=== PATIENT | male | born 1975 | race Caucasian/White ===

== ENCOUNTER 2017-08-30 19:33 | Emergency (ER) | payer MEDICARE, MEDICAID ==
[~2017-08-30] VITALS: Ht 198.1 cm; Wt 102.1 kg
[~2017-08-30 19:33] MED LIST: ABILIFY 5 MG TAB5 M1 PO; ABILIFY20 MG; ABILIFY20 MG PO; ALPRAZOLAM; AMBIENCR; AMBIENCR PO; ASACOL; ASACOL 400 MG400 M1 PO; ASACOL PO; BENTYL 20 MG TA20 M1 PO; BENTYL20 MG PO; CELEXA 20 MG TA20 M1; CELEXA40 MG PO; CIPROFLOXACIN500 M1 PO; COMPAZINE10 M1 PO; COMPAZINE10 MG PO; DILANTIN100 MG PO; DILAUDID; DILAUDID 4 MG TA4 M1; DILAUDID 4 MG TA4 M1 PO; DILAUDID2 M1 PO; DILAUDID8 MG PO; FENTANYL PA50 MCG/HR TP; FLAGYL500 MG PO; HYDROCODONE-AP1 EAC6 PO; IBUPROFEN 600600 M1 PO; LAMICTAL100 MG PO; LORTAB 7.5/5001 TA3 PO; MEDROLDOSEPACK PO; NEURONTIN600 MG PO; NEURONTIN800 MG PO; NORCO 5-325 TA1 EACH PO; NORCO 7.5-3251 EACH PO; OMEPRAZOLE40 MG PO; PEPCID AC20 M1 PO; PERCOCET 5-3251 EACH PO; PHENERGAN 25 MG25 M1 PO; PHENERGAN 25 MG25 MG PO; PHENERGAN25 M2 RC; PHENERGAN25 MG RE; PHENERGAN50 MG RC; PREDNISONE 10 M10 M1 PO; PREDNISONE 20 M20 M1; PREDNISONE 20 M20 M1 PO; PREDNISONE PO; PREDNISONE50 MG PO; PROTONIX40 MG PO; REGLAN 10 MG TA10 MG PO; SEROQUEL; SEROQUEL XR 30300 MG; SEROQUEL XR 30300 MG PO; SIMVASTATIN20 MG; ULTRAM 50MG TAB50 MG PO; VICODIN 5-5001 EACH PO; WELCHOL 625 MG625 MG PO; XANAX XR2 MG; XANAX XR2 MG PO; XANAX1 MG PO; ZOFRAN 4 MG ORAL4 M1 DIS; ZOFRAN 4 MG ORAL4 MG PO; ZOFRAN ODT4 MG PO; ZOFRAN4 MG PO; ZOFRAN8 MG PO; ZOLPIDEM TART12.5 M1 PO
[2017-08-30] MEDS ORDERED: NORCO 10-325 T1 EACH (19:41)
[2017-08-30 19:59] LABS: ABSOLUTE EOSINOPHILS 0.1 thou/uL (0.0-0.7); ABSOLUTE LYMPHOCYTES 1.8 thou/uL (0.8-5.3); ABSOLUTE MONOCYTES 0.7 thou/uL (0.0-1.2); ABSOLUTE NEUTROPHILS 7.9 thou/uL (1.6-8.1); BASOPHILS 0.2 %; EOSINOPHILS 0.5 %; HEMATOCRIT 38.6 % (42.0-52.0); HEMOGLOBIN 13.2 gm/dL (14.0-18.0); LYMPHOCYTES 17.1 %; MCH 31.5 pg (26.0-34.0); MCHC 34.2 g/dL (28.0-37.0); MCV 92.2 fL (80.0-100.0); MONOCYTES 7.1 %; NUCLEATED RBCS 0 /100WBC; PLATELET COUNT* 257 thou/uL (150-400); POLYS 75.1 %; RBC 4.19 mil/uL (4.50-6.00); RDW-CV 14.7 % (10.5-14.5); WBC 10.5 thou/uL (4.0-11.0)
[2017-08-30 20:08] LABS: CALCIUM 8.9 mg/dL (8.5-10.1); CREATININE 1.1 mg/dL (0.6-1.3); POTASSIUM 3.5 mmol/L (3.5-5.1)
[2017-08-30 20:12] LABS: URINE BILIRUBIN NEGATIVE (Negative); URINE BLOOD TRACE (Negative); URINE CLARITY CLEAR; URINE COLOR YELLOW; URINE GLUCOSE-RANDOM NEGATIVE (Negative); URINE KETONES NEGATIVE (Negative); URINE LEUKOCYTES-REFLEX NEGATIVE (Negative); URINE NITRITE-REFLEX NEGATIVE (Negative); URINE PROTEIN NEGATIVE (Negative); URINE SPECIFIC GRAVITY 1.015 (1.005-1.030); URINE UROBILINOGEN 0.2 E.U./dl (0.2-1.0)
[2017-08-30 20:13] LABS: ALBUMIN 3.4 g/dL (3.4-5.0); TOTAL BILIRUBIN 0.4 mg/dL (<0.1-1.0); TOTAL PROTEIN 7.6 g/dL (6.4-8.2)
[2017-08-30 20:19] LABS: AMP/METHAMP Negative (Negative); BARBITURATES Negative (Negative); BENZODIAZEPINES Negative (Negative); COCAINE Negative (Negative); METHADONE Negative (Negative); OPIATES POSITIVE (Negative); PCP Negative (Negative); THC Negative (Negative)
[2017-08-30 20:51] VITALS: BP 127/75
[2017-11-29] MEDS ORDERED: DILAUDID 2 MG TA2 MG PO (16:44)
[2017-11-29] MEDS ORDERED: AMBIEN 5 MG TABL5 M1 PO (16:45)
== END 2017-08-30 20:52 | disposition left against medical advice (07) ==
LOC: M.ERS 19:33
PROVIDERS: Physician Assistant
DX: R10.30 Lower abdominal pain, unspecified (principal); Z76.5 Malingerer [conscious simulation]; F43.10 Post-traumatic stress disorder, unspecified; Z91.018 Allergy to other foods; Z88.5 Allergy status to narcotic agent; F17.200 Nicotine dependence, unspecified, uncomplicated

== ENCOUNTER 2017-11-25 17:37 | Emergency (ER) | payer MEDICARE, MEDICAID ==
[~2017-11-25] VITALS: Ht 198.1 cm; Wt 102.1 kg
[~2017-11-25 17:37] MED LIST changes: +NORCO 10-325 T1 EACH
[2017-11-25] MEDS ORDERED: KEPPRA 500 MG500 M1 PO (17:47)
[2017-11-29] MEDS ORDERED: DILAUDID 2 MG TA2 MG PO (16:44)
[2017-11-29] MEDS ORDERED: AMBIEN 5 MG TABL5 M1 PO (16:45)
== END 2017-11-25 17:52 | disposition left against medical advice (07) ==
LOC: M.ERS 17:37
DX: G89.29 Other chronic pain (principal); R10.32 Left lower quadrant pain; Z76.5 Malingerer [conscious simulation]; Z88.8 Allergy status to other drugs, medicaments and biological substances; Z91.018 Allergy to other foods

== ENCOUNTER 2018-03-14 22:22 | Emergency (ER) | payer MEDICARE ==
[~2018-03-14] VITALS: Ht 198.1 cm; Wt 104.3 kg
[~2018-03-14 22:22] MED LIST changes: +AMBIEN 5 MG TABL5 M1 PO; +DILAUDID 2 MG TA2 MG PO; +KEPPRA 500 MG500 M1 PO
[2018-03-14] MEDS ORDERED: EFFEXOR XR75 MG PO (22:31)
[2018-03-14 22:54] LABS: ABSOLUTE EOSINOPHILS 0.2 thou/uL (0.0-0.7); ABSOLUTE LYMPHOCYTES 1.7 thou/uL (0.8-5.3); ABSOLUTE MONOCYTES 0.5 thou/uL (0.0-1.2); ABSOLUTE NEUTROPHILS 5.8 thou/uL (1.6-8.1); BASOPHILS 0.3 %; EOSINOPHILS 2.7 %; HEMATOCRIT 41.2 % (42.0-52.0); HEMOGLOBIN 14.1 gm/dL (14.0-18.0); LYMPHOCYTES 20.9 %; MCH 31.8 pg (26.0-34.0); MCHC 34.2 g/dL (28.0-37.0); MCV 93.1 fL (80.0-100.0); MONOCYTES 6.2 %; MPV 7.7 fl. (7.2-11.1); NUCLEATED RBCS 0 /100WBC; PLATELET COUNT* 270 thou/uL (150-400); POLYS 69.9 %; RBC 4.42 mil/uL (4.50-6.00); RDW-CV 14.2 % (10.5-14.5); WBC 8.2 thou/uL (4.0-11.0)
[2018-03-14 23:01] LABS: CALCIUM 8.8 mg/dL (8.5-10.1); CREATININE 0.9 mg/dL (0.6-1.3); POTASSIUM 3.7 mmol/L (3.5-5.1)
[2018-03-14 23:06] LABS: ALBUMIN 3.4 g/dL (3.4-5.0); TOTAL BILIRUBIN 0.4 mg/dL (<0.1-1.0); TOTAL PROTEIN 7.8 g/dL (6.4-8.2)
[2018-03-15 00:10] LABS: URINE BILIRUBIN NEGATIVE (Negative); URINE BLOOD NEGATIVE (Negative); URINE CLARITY CLEAR; URINE COLOR YELLOW; URINE GLUCOSE-RANDOM NEGATIVE (Negative); URINE KETONES NEGATIVE (Negative); URINE LEUKOCYTES-REFLEX NEGATIVE (Negative); URINE NITRITE-REFLEX NEGATIVE (Negative); URINE PROTEIN NEGATIVE (Negative); URINE UROBILINOGEN 0.2 E.U./dl (0.2-1.0)
[2018-03-15] MEDS ORDERED: FLAGYL500 M1 PO (00:25)
[2018-03-15] MEDS ORDERED: CIPRO500 MG PO (00:25)
[2018-03-15] MEDS ORDERED: BENTYL 20 MG TA20 M1 PO (00:36)
[2018-03-15 00:58] VITALS: BP 121/82
== END 2018-03-15 00:45 | disposition home or self-care (01) ==
LOC: M.ERS 22:22
PROVIDERS: Physician Assistant
DX: K52.9 Noninfective gastroenteritis and colitis, unspecified (principal); F17.210 Nicotine dependence, cigarettes, uncomplicated; K50.90 Crohn's disease, unspecified, without complications; Z88.6 Allergy status to analgesic agent; Z88.8 Allergy status to other drugs, medicaments and biological substances; Z91.018 Allergy to other foods

== ENCOUNTER 2018-04-03 18:01 | Emergency (ER) | payer MEDICARE ==
[~2018-04-03] VITALS: Ht 198.1 cm; Wt 104.3 kg
[~2018-04-03 18:01] MED LIST changes: +CIPRO500 MG PO; +EFFEXOR XR75 MG PO; +FLAGYL500 M1 PO
[2018-04-03 18:02] VITALS: BP 106/84
== END 2018-04-03 18:16 | disposition left against medical advice (07) ==
LOC: M.ERS 18:01
DX: R10.32 Left lower quadrant pain (principal); G89.29 Other chronic pain; F17.210 Nicotine dependence, cigarettes, uncomplicated; Z76.5 Malingerer [conscious simulation]; F32.9 Major depressive disorder, single episode, unspecified; Z88.5 Allergy status to narcotic agent; Z91.018 Allergy to other foods; Z88.8 Allergy status to other drugs, medicaments and biological substances

== ENCOUNTER 2018-04-06 00:51 | Emergency (ER) | payer MEDICARE ==
[~2018-04-06] VITALS: Ht 198.1 cm; Wt 104.3 kg
[2018-04-06] MEDS ORDERED: LAMICTAL200 MG PO (01:06)
[2018-04-06] MEDS ORDERED: TRAZODONE HCL100 MG PO (01:07)
[2018-04-06 01:49] VITALS: BP 120/76
== END 2018-04-06 01:52 | disposition left against medical advice (07) ==
LOC: M.ERS 00:51
DX: R10.32 Left lower quadrant pain (principal); K50.90 Crohn's disease, unspecified, without complications; F32.9 Major depressive disorder, single episode, unspecified; F17.210 Nicotine dependence, cigarettes, uncomplicated; Z91.018 Allergy to other foods; Z88.5 Allergy status to narcotic agent; Z88.6 Allergy status to analgesic agent

== ENCOUNTER 2018-04-11 01:47 | Emergency (ER) | payer MEDICARE ==
[~2018-04-11] VITALS: Ht 198.1 cm; Wt 104.3 kg
[~2018-04-11 01:47] MED LIST changes: +LAMICTAL200 MG PO; +TRAZODONE HCL100 MG PO
[2018-04-11 01:48] VITALS: BP 135/89
[2018-04-11] MEDS ORDERED: ATIVAN1 MG PO (01:54)
[2018-04-11 02:53] LABS: AMP/METHAMP Negative (Negative); BARBITURATES Negative (Negative); BENZODIAZEPINES POSITIVE (Negative); COCAINE Negative (Negative); METHADONE Negative (Negative); OPIATES Negative (Negative); PCP Negative (Negative); THC Negative (Negative)
[2018-04-11 03:34] LABS: URINE BILIRUBIN NEGATIVE (Negative); URINE BLOOD NEGATIVE (Negative); URINE CLARITY CLEAR; URINE COLOR YELLOW; URINE GLUCOSE-RANDOM NEGATIVE (Negative); URINE KETONES NEGATIVE (Negative); URINE LEUKOCYTES-REFLEX NEGATIVE (Negative); URINE NITRITE-REFLEX NEGATIVE (Negative); URINE PROTEIN NEGATIVE (Negative); URINE SPECIFIC GRAVITY <= 1.005 (1.005-1.030); URINE UROBILINOGEN 0.2 E.U./dl (0.2-1.0)
== END 2018-04-11 02:50 | disposition left against medical advice (07) ==
LOC: M.ERS 01:47
PROVIDERS: Personal Emergency Response Attendant
DX: R10.32 Left lower quadrant pain (principal); R11.2 Nausea with vomiting, unspecified; K50.90 Crohn's disease, unspecified, without complications; F32.9 Major depressive disorder, single episode, unspecified; F17.210 Nicotine dependence, cigarettes, uncomplicated; Z91.018 Allergy to other foods; Z88.6 Allergy status to analgesic agent; Z79.899 Other long term (current) drug therapy

== ENCOUNTER 2019-09-22 15:02 | Emergency (ER) | payer OTHER ==
[~2019-09-22] VITALS: Ht 198.1 cm; Wt 104.3 kg
[~2019-09-22 15:02] MED LIST changes: +ATIVAN1 MG PO
[2019-09-22 15:10] VITALS: BP 126/85
== END 2019-09-22 16:15 | disposition left against medical advice (07) ==
LOC: M.ERS 15:02
DX: Z76.5 Malingerer [conscious simulation] (principal); R10.32 Left lower quadrant pain; N50.812 Left testicular pain; F17.210 Nicotine dependence, cigarettes, uncomplicated; F15.10 Other stimulant abuse, uncomplicated; F12.10 Cannabis abuse, uncomplicated; F32.9 Major depressive disorder, single episode, unspecified; F43.10 Post-traumatic stress disorder, unspecified; Z88.5 Allergy status to narcotic agent; Z88.8 Allergy status to other drugs, medicaments and biological substances; Z91.018 Allergy to other foods; K50.90 Crohn's disease, unspecified, without complications; Z90.89 Acquired absence of other organs; Z79.899 Other long term (current) drug therapy